=== PATIENT | female | born 1995 | race Caucasian/White ===

== ENCOUNTER 2019-09-13 10:22 | Observation (INO) ==
[2019-09-13] MEDS ORDERED: PENICILLIN G POTASSIUM 5 MILLIONUNT in DEXTROSE 5 % IN WATER 100 ML IV ONE ×2 (10:49)
[2019-09-13] MEDS ORDERED: BETAMETHASONE ACETATE,SOD PHOS 6 MG/ML VIAL IM ONE (10:49)
[2019-09-13] MEDS ORDERED: NIFEdipine 10 MG CAPSULE PO SCH (11:00)
[2019-09-13 11:18] LABS: Hematocrit 29.2 % (37.0-47.0); Hemoglobin 9.7 gm/dL (12.5-16.0); Mean Cell Volume 91.8 fl (78-100); Mean Corpuscular Hemoglobin 30.5 pg (27-31); Mean Corpuscular Hgb Conc 33.2 g/dl (32-36); Mean Platelet Volume 10.4 fl (8-12.5); Neutrophil # 10.4 K/mm3 (1.3-6.0); Neutrophil % 73.4 % (42-75.0); Platelet Count 288 K/mm3 (150-450); Red Blood Count 3.18 M/mm3 (4.2-5.4); Red Cell Distribution Width 12.7 % (11.5-14.0); White Blood Count 14.2 K/mm3 (4.0-10.5)
[2019-09-13 12:29] LABS: Urine Bilirubin Negative (NEGATIVE); Urine Blood Negative /ul (NEGATIVE); Urine Ketone Negative (NEGATIVE); Urine Nitrite Negative (NEGATIVE); Urine Protein Negative (NEGATIVE); Urine Urobilinogen Normal (NORMAL)
[2019-09-13] MEDS ORDERED: NIFEdipine 10 MG CAPSULE PO ONE (12:30)
[2019-09-13 13:05] LABS: Urine Appearance Slightly Cloudy (CLEAR); Urine Bacteria 3+; Urine Color Yellow; Urine RBC None Seen /hpf (0-5); Urine WBC 0-5 /hpf (0-5)
[2019-09-13] MEDS ORDERED: DEXTROSE 5%-LACTATED RINGERS 1,000 ML IV PRN (13:06)
[2019-09-13 13:08] LABS: Cocaine Ur Negative (NEGATIVE); Urine Barbiturate Negative (NEGATIVE); Urine Benzodiazepines Negative (NEGATIVE); Urine Opiates Negative (NEGATIVE); Urine PCP Negative (NEGATIVE); Urine THC Negative (NEGATIVE)
[2019-09-13] MEDS ORDERED: ACETAMINOPHEN 500 MG TABLET PO ONE (14:31)
[2019-09-13] MEDS ORDERED: PENICILLIN G POTASSIUM 2.5 MILLIONUNT in DEXTROSE 5 % IN WATER 100 ML IV SCH ×2 (14:52)
[2019-09-13] MEDS: PENICILLIN G POTASSIUM 2.5 MILLIONUNT in DEXTROSE 5 % IN WATER 100 ML IV SCH ×4 (14:56→20:15)
[2019-09-13] MEDS ORDERED: oxyCODONE HCL/ACETAMINOPHEN 1 TAB TABLET PO PRN (18:48)
[2019-09-13] MEDS ORDERED: hydrOXYzine PAMOATE 50 MG CAPSULE PO PRN (18:49)
--- NOTE | 2019-09-13 19:19 | HP ---
Chief Complaint - Chief Complaint Date of Service: 09/13/19 Time of Service: 18:56 Chief Complaint: painful contractions History of Present Illness: 23 yo at 35 0/7 weeks presents to L&D complaining of frequent painful contractions since early this am. She denies LOF, vaginal bleeding or d/c, recent coitus or trauma, or F/C. This complicated by anemia, anxiety, RNI, and prior hip surgery. Rh positive Rubella nonimmune GBS pending Medical History (Last Reviewed 09/13/19 @ 18:59 by Karlo Foreman DO) Cervical dysplasia Onset Date: 04/03/19 LGSIL pap smear Anxiety Onset Date: Unknown Depressed Onset Date: Unknown Surgical History: Surgical History (Last Reviewed 09/13/19 @ 18:59 by Karlo Foreman DO) History of breast augmentation Onset Date: Unknown submuscular History of hip surgery Onset Date: Unknown sledding accident Family History: Family History (Last Reviewed 09/13/19 @ 18:59 by Karlo Foreman DO) Mother Diabetes gestational Father Alive and well Social History: (Last Reviewed 09/13/19 @ 18:59 by Karlo Foreman DO) Social History: Marital status: Single current occupational status: employed current occupation: [employer] Service: No Tobacco: Smoking Status: Never smoker Alcohol: alcohol intake: former Substance Use: substance use type: does not use Dietary Habits: caffeine: Yes Review Of Systems (GEN) - Review of Systems Generalized/Overall Review: Present: Fatigue - hasn't been sleeping well EENTM: Present: No Symptoms Reported Respiratory: Present: No Symptoms Reported Cardiac: Present: No Symptoms Reported Abdominal: Present: Nausea - with pain, Vomiting, Abdominal Pain - contractions, RUQ that migrated to lower abdomen/suprapubic region Genitourinary: Present: No Symptoms Reported Musculoskeletal: Present: No Symptoms Reported Neurological: Present: No Symptoms Reported Skin: Present: No Symptoms Reported Endocrine: Present: No Symptoms Reported Immunizations: IMMUNIZATION HX Immunizations Up to Date Yes History of Influenza Vaccine No Hx Pneumococcal Vaccination No Allergies/Adverse Reactions: Allergies Allergy/AdvReac Type Severity Reaction Status Date / Time No Known Allergies Allergy Verified 09/11/19 16:23 Home Medications: HOME MEDICATIONS ferrous sulfate 325 mg (65 mg iron) tablet,delayed release 325 mg PO DAILY #30 tab 07/20/19 [Last Taken Unknown] Ondansetron [Zofran Odt] 4 mg PO Q6H PRN #20 tab 08/17/19 [Last Taken Unknown] Vits96/Iron Fum/Folic [ S] 1 tab PO DAILY 09/11/19 [Last Taken Unknown] Calcium Carbonate [Tums] 500 mg PO PRN PRN 09/13/19 [Last Taken Unknown] Exam - Exam Vital Signs: Vital Signs - Last Taken Temp 36.6 C 09/13/19 11:07 Pulse 101 H 09/13/19 12:23 Resp 16 09/13/19 11:07 BP 108/67 09/13/19 12:23 Pulse Ox 97 09/13/19 11:07 Constitutional: Present: Alert, Oriented x3, Cooperative, Somnolent, Thin and frail - appears very tired ENT Exam: Present: hearing grossly normal Neck: Absent: thyromegaly Breasts: Present: Exam deferred Respiratory: Present: lungs clear, no respiratory distress Cardiovascular/Chest: Present: normal peripheral pulses, no edema, tachycardia - mild Abdomen: Present: soft, nontender, no rebound tenderness, other - gravid /Rectal: Present: Other - cervix 1-2/80/-1 Extremity: Present: no pedal edema, no calf tenderness Skin Exam: Present: warm/dry, no cyanosis, pallor Neurologic: Present: oriented x 3, other - saddened affect Appearance: Present: appropriate appearance, appropriate insight Eye contact: Present: cooperative, good eye contact, normal speech Thoughts: Present: normal thought pattern Diagnostic Studies: Abnormal Lab Results 09/13/19 09/13/19 Range/Units 11:17 12:00 WBC 14.2 H (4.0-10.5) K/mm3 RBC 3.18 L (4.2-5.4) M/mm3 Hgb 9.7 L (12.5-16.0) gm/dL Hct 29.2 L (37.0-47.0) % Immature Gran % (Auto) 1.60 H (0.001-0.429) % Immature Gran # (Auto) 0.23 H (0.000-0.0310) K/mm3 Lymphocytes % 15.7 L (20-51) % Neutrophils # 10.4 H (1.3-6.0) K/mm3 Monocytes # 1.2 H (0.0-1.0) k/mm3 Urine Bacteria 3+ H (NONE) Laboratory Results WBC 14.2 K/mm3 (4.0-10.5) H 09/13/19 11:17 RBC 3.18 M/mm3 (4.2-5.4) L 09/13/19 11:17 Hgb 9.7 gm/dL (12.5-16.0) L 09/13/19 11:17 Hct 29.2 % (37.0-47.0) L 09/13/19 11:17 MCV 91.8 fl (78-100) 09/13/19 11:17 MCH 30.5 pg (27-31) 09/13/19 11:17 MCHC 33.2 g/dl (32-36) 09/13/19 11:17 RDW 12.7 % (11.5-14.0) 09/13/19 11:17 Plt Count 288 K/mm3 (150-450) 09/13/19 11:17 MPV 10.4 fl (8-12.5) 09/13/19 11:17 Immature Gran % (Auto) 1.60 % (0.001-0.429) H 09/13/19 11:17 Immature Gran # (Auto) 0.23 K/mm3 (0.000-0.0310) H 09/13/19 11:17 Neutrophils % 73.4 % (42-75.0) 09/13/19 11:17 Lymphocytes % 15.7 % (20-51) L 09/13/19 11:17 Monocytes % 8.3 % (0.0-9) 09/13/19 11:17 Eosinophils % 0.6 % (0.0-3.0) 09/13/19 11:17 Basophils % 0.4 % (0.0-1.0) 09/13/19 11:17 Nucleated RBC % 0.0 k/mm3 (0-1) 09/13/19 11:17 Neutrophils # 10.4 K/mm3 (1.3-6.0) H 09/13/19 11:17 Lymphocytes # 2.23 k/mm3 (1.5-3.5) 09/13/19 11:17 Monocytes # 1.2 k/mm3 (0.0-1.0) H 09/13/19 11:17 Eosinophils # 0.1 k/mm3 (0.0-0.7) 09/13/19 11:17 Absolute Basophils 0.1 k/mm3 (0.0-0.1) 09/13/19 11:17 Urine Color Yellow 09/13/19 12:00 Urine Appearance Slightly cloudy (CLEAR) 09/13/19 12:00 Urine pH 7.0 pH (5.0-7.0) 09/13/19 12:00 Ur Specific [place] 1.020 SP.GR. (1.005-1.010) 09/13/19 12:00 Urine Protein Negative mg/dL (NEGATIVE) 09/13/19 12:00 Urine Glucose (UA) Negative mg/dL (NEGATIVE) 09/13/19 12:00 Urine Ketones Negative mg/dL (NEGATIVE) 09/13/19 12:00 Urine Blood Negative /ul (NEGATIVE) 09/13/19 12:00 Urine Nitrate Negative (NEGATIVE) 09/13/19 12:00 Urine Bilirubin Negative mg/dl (NEGATIVE) 09/13/19 12:00 Urine Urobilinogen Normal EU/dl (NORMAL) 09/13/19 12:00 Ur Leukocyte Esterase Negative /ul (NEGATIVE) 09/13/19 12:00 Urine RBC None seen /hpf (0-5) 09/13/19 12:00 Urine WBC 0-5 /hpf (0-5) 09/13/19 12:00 Ur Epithelial Cells 0-5 /hpf (0-5) 09/13/19 12:00 Urine Bacteria 3+ (NONE) H 09/13/19 12:00 Urine Opiates Screen Negative (NEGATIVE) 09/13/19 12:00 Barbiturate Screen Negative (NEGATIVE) 09/13/19 12:00 Ur Phencyclidine Scrn Negative (NEGATIVE) 09/13/19 12:00 Urine Amphetamine Negative (NEGATIVE) 09/13/19 12:00 U Benzodiazepines Scrn Negative (NEGATIVE) 09/13/19 12:00 Urine Cocaine Screen Negative (NEGATIVE) 09/13/19 12:00 Urine Marijuana (THC) Negative (NEGATIVE) 09/13/19 12:00 Assessment/Plan - Assessment/Plan (1) Threatened labor Problem: Acute Qualifiers: Trimester: third trimester (2) Anemia Assessment: Patient observed for several hours because of frequent painful contractions and abdominal pain. Evaluation for abruption was negative. Contractions persisted every 1-2 minutes despite IV fluid bolus and terbutaline at her last admission 2 days ago and today despite 2 doses of nifedipine. Because of the persistence, frequency, and intensity of her contractions I will admit her for 23 hour observation where we can keep a close eye on her to make sure she doesn't go into labor. Problem: Chronic Qualifiers: Anemia type: iron deficiency Iron deficiency anemia type: inadequate dietary iron intake Qualified Code(s): D50.8 - Other iron deficiency anemias Non Stress Test - Status NST: 09/13/19 Reason for NST: threatened labor Monitor Mode: External Acceleration: Present Decelerations: None Variability: Moderate 6-25 bpm Activity: reactive - Assessment NST Assessment: threatened labor - Plan NST Plan: Admit to L&D - 23 hour observation
[2019-09-13] MEDS ORDERED: hydrOXYzine PAMOATE 25 MG CAPSULE ONE (20:05)
[2019-09-14 05:47] VITALS: BP 105/61
[2019-09-14] MEDS ORDERED: TERBUTALINE SULFATE 1 MG/ML VIAL SC ONE (06:15)
[2019-09-14] MEDS ORDERED: TERBUTALINE SULFATE 1 MG/ML VIAL ONE (06:21)
[2019-09-14] MEDS ORDERED: BETAMETHASONE ACETATE,SOD PHOS 6 MG/ML VIAL IM ONE (11:00)
--- NOTE | 2019-09-14 13:47 | DS ---
(1) Threatened labor Problem: Resolved Qualifiers: Trimester: third trimester (2) Anemia Problem: Chronic Qualifiers: Anemia type: iron deficiency Iron deficiency anemia type: inadequate dietary iron intake Qualified Code(s): D50.8 - Other iron deficiency anemias Date of Discharge:: 09/14/19 Hospital Course: Patient was admitted for 23 hour observation due to frequent painful contractions every 1-2 minutes. She failed to respond to fluid bolus or tocolytics. She developed moderate/severe right-sided abdominal/flank pain. Evaluation for kidney stone and abruption were negative. The pain slowly resolved as her contractions eased up. She had minor cervical manager of change her her hospitalization (-/-1 to /-) and contractions resolved over the past few hours prior to discharge. She received a course of betamethasone (09/13/19 and 09/14/19). GBS cx results pending. Procedures Performed: see notes below - IV hydration, tocolytics, pain medication, anxiolytics, monitoring, ultrasounds (ob limited, abdomen limited) Care Plan Goals: Deliver at term Plan of Treatment: Avoid strenuous activity, nipple stimulation, or sex until after 36 weeks. Results and Findings: Lab Pending Results 09/13/19 11:17: WBC 14.2 H, RBC 3.18 L, Hgb 9.7 L, Hct 29.2 L, MCV 91.8, MCH 30.5, MCHC 33.2, RDW 12.7, Plt Count 288, MPV 10.4, Immature Gran % (Auto) 1.60 H, Immature Gran # (Auto) 0.23 H, Neutrophils % 73.4, Lymphocytes % 15.7 L, Monocytes % 8.3, Eosinophils % 0.6, Basophils % 0.4, Nucleated RBC % 0.0, Neutrophils # 10.4 H, Lymphocytes # 2.23, Monocytes # 1.2 H, Eosinophils # 0.1, Absolute Basophils 0.1 09/13/19 12:00: Urine Opiates Screen Negative, Barbiturate Screen Negative, Ur Phencyclidine Scrn Negative, Urine Amphetamine Negative, U Benzodiazepines Scrn Negative, Urine Cocaine Screen Negative, Urine Marijuana (THC) Negative 09/13/19 12:00: Urine Color Yellow, Urine Appearance Slightly cloudy, Urine pH 7.0, Ur Specific [place] 1.020, Urine Protein Negative, Urine Glucose (UA) Negative, Urine Ketones Negative, Urine Blood Negative, Urine Nitrate Negative, Urine Bilirubin Negative, Urine Urobilinogen Normal, Ur Leukocyte Esterase Negative, Urine RBC None seen, Urine WBC 0-5, Ur Epithelial Cells 0-5, Urine Bacteria 3+ H Discharge Location: Home Disposition: Home self-care Condition: Good Discharge Activity: Activity as tolerated, Other - Avoid strenuous activity, nipple stimulation, or sex until after 36 weeks. Discharge Diet: General/regular food Problem Oriented Discharge Instructions to Patient/Family: Labor and Information, [id number] Complete Home Medications List: Complete Home Medication List: ferrous sulfate 325 mg (65 mg iron) tablet,delayed release 325 mg PO DAILY #30 tab 07/20/19 Ondansetron [Zofran Odt] 4 mg PO Q6H PRN #20 tab 08/17/19 Vits96/Iron Fum/Folic [ S] 1 tab PO DAILY 09/11/19 Calcium Carbonate [Tums] 500 mg PO PRN PRN 09/13/19
--- NOTE | 2019-09-14 14:03 | PN ---
Subjective - Date and Time Seen Date: 09/14/19 Time: 13:20 Subjective Narrative: Patient states pain is now only 1-2/10 with rare contraction (down from 11/18). Denies N/V/F/C, LOF, vaginal bleeding or d/c, dysuria, Objective - Review of Systems Generalized/Overall Review: Reports: Fatigue EENTM: Reports: No Symptoms Reported Respiratory: Reports: No Symptoms Reported Cardiac: Reports: No Symptoms Reported Abdominal: Reports: Other - rare contraction Genitourinary Symptoms: Reports: No Symptoms Reported Musculoskeletal Complaints: Reports: No Symptoms Reported Neurological: Reports: No Symptoms Reported Skin: Reports: No Symptoms Reported Endocrine: Reports: No Symptoms Reported - Vitals Vitals: Last Vital Signs Temp 37.0 C 09/14/19 05:15 Pulse 90 09/14/19 05:15 Resp 18 09/14/19 05:15 BP 105/61 09/14/19 05:15 Pulse Ox 98 09/14/19 05:15 - Exam Constitutional: Present: Alert, Oriented x3, Cooperative ENT Exam: Present: hearing grossly normal Respiratory: Present: lungs clear, no respiratory distress Cardiovascular/Chest: Present: normal peripheral pulses, regular rate, rhythm Abdomen: Present: soft, nontender, no rebound tenderness, other - gravid /Rectal: Present: Exam deferred Extremity: Present: non-tender, no pedal edema, no calf tenderness Skin Exam: Present: warm/dry, no cyanosis, pallor Neurologic: Present: alert, normal mood/affect, oriented x 3 Appearance: Present: appropriate appearance Eye contact: Present: cooperative, good eye contact Thoughts: Present: normal thought pattern, normal mood /affect Assessment/Plan - Problems/Diagnosis (1) Threatened labor Problem: Resolved Qualifiers: Trimester: third trimester (2) Anemia Problem: Chronic Qualifiers: Anemia type: iron deficiency Iron deficiency anemia type: inadequate dietary iron intake Qualified Code(s): D50.8 - Other iron deficiency anemias Non Stress Test - Status NST: 09/14/19 Weeks Gestation: 35 1/7 weeks Reason for NST: threatened labor Monitor Mode: External Acceleration: Present Decelerations: None Variability: Moderate 6-25 bpm Baseline Heart Rate: 135 Activity: reactive Reactive: 15 by 15 - Assessment NST Assessment: threatened labor - Plan NST Plan: Reassurance Provided, Other - PTL precautions
== END 2019-09-14 14:06 | disposition home or self-care (01) ==
LOC: OB 10:22 → OBCLINIC 10:22
PROVIDERS: ADMIT Obstetrics & Gynecology; ATTEND Obstetrics & Gynecology
CPT/HCPCS: 36415; 59025; 76770; 76815; 80307; 81001; 85025; 96365; 96366; 96372; G0378; G0379

== ENCOUNTER 2019-10-04 17:47 | Inpatient (IN) ==
[2019-10-04] MEDS ORDERED: OXYTOCIN/DEXTROSE 5%-WATER 30 UNITS/500 ML BAG IV ONE (20:07)
[2019-10-04] MEDS ORDERED: ONDANSETRON 4 MG TAB.RAPDIS PO PRN (20:07)
[2019-10-04] MEDS ORDERED: RINGER'S SOLUTION,LACTATED 1,000 ML IV ONE (20:07)
[2019-10-04] MEDS ORDERED: DEXTROSE 5%-LACTATED RINGERS 1,000 ML IV PRN (20:59)
[2019-10-04] MEDS ORDERED: LIDOCAINE HCL 50 ML VIAL PERI PRN (21:23)
--- NOTE | 2019-10-05 01:01 | HP ---
Chief Complaint - Chief Complaint Date of Service: 10/05/19 Time of Service: 00:51 Chief Complaint: contractions History of Present Illness: 23 yo admitted at 38 wks for labor. Patient complains of increasing frequency and intensiity of contractions. This complicated by anemia, h/o anxiety/depression, and LGSIL pap. Rh positive Rubella Nonimmune GBS negative Medical History (Last Reviewed 10/05/19 @ 00:56 by Karlo Foreman DO) Cervical dysplasia Onset Date: 04/03/19 LGSIL pap smear Anxiety Onset Date: Unknown Depressed Onset Date: Unknown Surgical History: Surgical History (Last Reviewed 10/05/19 @ 00:56 by Karlo Foreman DO) History of breast augmentation Onset Date: Unknown submuscular History of hip surgery Onset Date: Unknown sledding accident Family History: Family History (Last Reviewed 10/05/19 @ 00:56 by Karlo Foreman DO) Mother Diabetes gestational Father Alive and well Social History: (Last Reviewed 10/05/19 @ 00:56 by Karlo Foreman DO) Social History: Marital status: Single current occupational status: employed current occupation: [employer]: No Tobacco: Smoking Status: Former smoker Alcohol: alcohol intake: former Substance Use: substance use type: does not use Dietary Habits: caffeine: Yes Review Of Systems (GEN) - Review of Systems Generalized/Overall Review: Present: No Symptoms Reported EENTM: Present: No Symptoms Reported Respiratory: Present: No Symptoms Reported Cardiac: Present: No Symptoms Reported Abdominal: Present: Other - contractions Genitourinary: Present: Other - vaginal pressure Musculoskeletal: Present: No Symptoms Reported Neurological: Present: No Symptoms Reported Skin: Present: No Symptoms Reported Endocrine: Present: No Symptoms Reported Immunizations: IMMUNIZATION HX Immunizations Up to Date Yes History of Influenza Vaccine No Hx Pneumococcal Vaccination No Allergies/Adverse Reactions: Allergies Allergy/AdvReac Type Severity Reaction Status Date / Time No Known Allergies Allergy Verified 10/04/19 18:19 Home Medications: HOME MEDICATIONS Ondansetron [Zofran Odt] 4 mg PO Q6H PRN #20 tab 08/17/19 [Last Taken Unknown] Vits96/Iron Fum/Folic [ S] 1 tab PO DAILY 09/11/19 [Last Taken 10/04/19] Calcium Carbonate [Tums] 500 mg PO PRN PRN 09/13/19 [Last Taken 10/03/19] Exam - Exam Vital Signs: Vital Signs - Last Taken Temp 36.3 C 10/05/19 00:42 Pulse 82 10/04/19 22:31 Resp 18 10/04/19 22:31 BP 123/67 10/04/19 22:31 Pulse Ox 96 10/04/19 22:31 Constitutional: Present: Alert, Oriented x3, Cooperative, Mild distress ENT Exam: Present: hearing grossly normal Neck: Absent: thyromegaly Breasts: Present: Exam deferred Respiratory: Present: lungs clear, no respiratory distress Cardiovascular/Chest: Present: regular rate, rhythm, no edema Abdomen: Present: soft, nontender, no rebound tenderness, other - gravid /Rectal: Present: Other - Cervix - 4-5/90/0 Extremity: Present: no pedal edema, no calf tenderness Skin Exam: Present: normal color, warm/dry, no cyanosis Neurologic: Present: alert, normal mood/affect, oriented x 3 Appearance: Present: appropriate appearance, appropriate insight Eye contact: Present: cooperative, good eye contact Thoughts: Present: normal thought pattern, normal mood /affect Diagnostic Studies: Laboratory Results Blood Type AB Positive 10/04/19 21:15 Antibody Screen Negative 10/04/19 21:15 Assessment/Plan - Assessment/Plan (1) Labor established Assessment: Admit for routine management of labor. Epidural and pitocin PRN. Problem: Acute
--- NOTE | 2019-10-05 01:03 | PN ---
Progess Note - Interim Date: 10/05/19 Time: 01:01 Narrative: 10/05/19 01:01 Patient rating her contractions as moderate Vital signs stable. FHT: 135 baseline, reassuring contractions q 2-3 min, frequent couplets Cervix: 8/90/+1, AROM-clear Impression: Intrauterine at 38 1/7 weeks in labor Plan: Continue present plan. Position changes. Anticipate normal spontaneous vaginal delivery soon.
[2019-10-05] MEDS ORDERED: BUPIVACAINE HCL/PF 30 ML VIAL EP SCH (01:15)
[2019-10-05] MEDS ORDERED: BUPIVACAINE HCL/0.9 % NACL/PF 250 ML EP PRN (01:15)
[2019-10-05] MEDS ORDERED: ONDANSETRON HCL/PF 2 MG/ML VIAL IV PRN (01:15)
[2019-10-05] MEDS ORDERED: NALOXONE HCL 1 MG/1 ML SYRG IV PRN (01:15)
--- NOTE | 2019-10-05 01:53 | ANES ---
Anesthesia Pre Procedure Eval Vitals/Labs: Last Vital Signs Temp 36.3 C 10/05/19 00:42 Pulse 82 10/04/19 22:31 Resp 18 10/04/19 22:31 BP 123/67 10/04/19 22:31 Pulse Ox 96 10/04/19 22:31 HOME MEDICATIONS Ondansetron [Zofran Odt] 4 mg PO Q6H PRN #20 tab 08/17/19 [Last Taken Unknown] Vits96/Iron Fum/Folic [ S] 1 tab PO DAILY 09/11/19 [Last Taken 10/04/19] Calcium Carbonate [Tums] 500 mg PO PRN PRN 09/13/19 [Last Taken 10/03/19] Allergies/Adverse Reactions: Allergies Allergy/AdvReac Type Severity Reaction Status Date / Time No Known Allergies Allergy Verified 10/04/19 18:19 - Planned Procedure Planned Procedure: labor epidural Medication List Reviewed:: Yes Allergies Verified: Yes Medical History (Last Reviewed 10/05/19 @ 01:53 by Gomez Woody CRNA) Cervical dysplasia Onset Date: 04/03/19 LGSIL pap smear Anxiety Onset Date: Unknown Depressed Onset Date: Unknown Surgical History (Last Reviewed 10/05/19 @ 01:53 by Gomez Woody CRNA) History of breast augmentation Onset Date: Unknown submuscular History of hip surgery Onset Date: Unknown sledding accident Family History (Last Reviewed 10/05/19 @ 00:56 by Karlo Foreman DO) Mother Diabetes gestational Father Alive and well - Anesthesia Assessment and Plan ASA Class: PS, II Anesthesia Type Plan: Epidural
--- NOTE | 2019-10-05 02:07 | ANES ---
Anesthesia Procedure Note Procedure Note: ANESTHESIA PROCEDURE NOTE Date of Procedure: 10/05/2019. Time of procedure: 154. Performed by: Gomez Woody CRNA [employer] Teacher: None. Preprocedure diagnosis: Active labor. Post procedure diagnosis: Same. Procedure: Insertion of labor epidural. Indications: The patient is a 23-year-old female in active labor requesting labor epidural for pain management. Findings: See below. Details of the procedure: The patient was placed in a sitting position. DuraPrep as well as Betadine swabs X3 was applied to the patient's back. Patient was then draped in a sterile fashion. Lidocaine 1% was infiltrated to the skin and subcutaneous tissues at the level of the L3-4 interspace. The epidural space was identified using a 18-gauge Tuohy needle with [id number] technique. Epidural catheter was inserted to a depth of 10 centimeters at skin. Negative test dose was elicited using 3 mL of 1.5% preservative-free lidocaine plus epinephrine 1 200,000. The epidural catheter was then taped and secured in place. A loading dose of 8 mL of 0.25% preservative-free bupivacaine was administered to the epidural catheter after negative aspiration for blood and CSF. EBL: Minimal. Fluids: N/A. Specimen: N/A. Post procedure condition: The patient tolerated the procedure well. No complications were noted. Thank you for this consultation. Gomez Woody CRNA
--- NOTE | 2019-10-05 02:08 | ANES ---
Post Anesthesia Assessment - Vital Signs Vitals: Last Vital Signs Temp 36.8 C 10/05/19 02:07 Pulse 87 10/05/19 02:07 Resp 20 10/05/19 02:07 BP 131/80 10/05/19 02:07 Pulse Ox 98 10/05/19 02:07 Airway Patency: Normal - Mental Status Level Of Consciousness: Awake - N/V Assessment Nausea/Vomiting Presence: None Dehydration:: No
[2019-10-05] MEDS ORDERED: oxyCODONE HCL/ACETAMINOPHEN 1 TAB TABLET PO PRN (06:11)
[2019-10-05] MEDS ORDERED: ACETAMINOPHEN 325 MG TABLET PO PRN (06:11)
[2019-10-05] MEDS ORDERED: BENZOCAINE/MENTHOL 81 SPRAY CAN TP PRN (06:11)
[2019-10-05] MEDS ORDERED: BISACODYL 10 MG SUPP.RECT RC PRN (06:11)
[2019-10-05] MEDS ORDERED: SENNOSIDES 8.6 MG TABLET PO PRN (06:11)
[2019-10-05] MEDS ORDERED: CALCIUM CARBONATE 500 MG TAB.CHEW PO PRN (06:11)
[2019-10-05] MEDS ORDERED: HYDROCORTISONE 30 APPL TUBE TP PRN (06:11)
[2019-10-05] MEDS ORDERED: GLYCERIN/WITCH HAZEL LEAF 40 APPL BOX TP PRN (06:11)
[2019-10-05] MEDS ORDERED: OXYTOCIN/DEXTROSE 5%-WATER 30 UNITS/500 ML BAG IV ONE (06:11)
--- NOTE | 2019-10-05 06:16 | OR ---
Operative Report - Dictated Report Narrative: Indication: Maternal exhaustion Pre Procedure: Patient was counseled to the risk, benefits, and alternatives to operative vaginal delivery. All questions were answered. Patient consented to proceed with operative vaginal delivery. Cervix was completely dilated and effaced, maternal- size appropriate for application, bladder was emptied, flexion point identified, cup choice appropriate for application site, maternal tissue excluded from vacuum cup heart rate interpretation: 130 baseline with moderate variability and mild variable decelerations, EFW 3800 g, station +3, Position of head THOMAS Anesthesia: Epidural Procedure: Total application time of the Kiwi Pro with Palm Pump was 75 seconds Maximum vacuum achieved was 500 mm Hg Number of pulls 3 Number of involuntary releases to Vacuum reduced between contractions Advancement in station with each pull Degree of rotation 0-45 Post Procedure: Viable male born at 0553 on 10/05/2019 with Apgars 8 and 9, weighing 3716 g with tight nuchal cord x1 and left hand presenting at face. Placenta spontaneously delivered EBL 150 mL Cord gases not collected Lacerations none No injury, no shoulder dystocia History for History for Definition: * The number of deliveries resulting in a live the patient experienced prior to current hospitalization * The previous delivery of live twins or any live multiple gestation is considered one live event. *If primagravida or nulliparous is documented select zero for the number of previous live births. Live Events: Live Events: 0
[2019-10-05] MEDS: DOCUSATE SODIUM 100 MG CAPSULE PO SCH ×2 (16:36→23:11)
[2019-10-05] MEDS: IBUPROFEN 800 MG TABLET PO PRN (16:36)
[2019-10-05] MEDS: PRENATAL VITS96/IRON FUM/FOLIC 1 TAB TABLET PO SCH (16:36)
[2019-10-05] MEDS: FERROUS SULFATE 325 MG TABLET PO SCH (16:37)
[2019-10-06] MEDS: IBUPROFEN 800 MG TABLET PO PRN ×3 (03:13→17:37)
[2019-10-06] MEDS: DOCUSATE SODIUM 100 MG CAPSULE PO SCH ×2 (09:58→20:21)
[2019-10-06] MEDS: FERROUS SULFATE 325 MG TABLET PO SCH (09:58)
[2019-10-06] MEDS: PRENATAL VITS96/IRON FUM/FOLIC 1 TAB TABLET PO SCH (09:58)
--- NOTE | 2019-10-06 12:39 | PN ---
Subjective - Date and Time Seen Date: 10/06/19 Time: 12:39 Objective - Vitals Vitals: Last Vital Signs Temp 36.1 C 10/06/19 08:47 Pulse 83 10/06/19 08:47 Resp 16 10/06/19 08:47 BP 107/71 10/06/19 08:47 Pulse Ox 99 10/06/19 08:47 Patient denies complaints. Bottlefeeding Lochia wnl abdomen - soft, nontender Uterus -firm, at umbilicus - 1 no calf tenderness Impression: day #1 - s/p spontaneous vaginal delivery. Plan: Continue routine care Cauti Physician Documentation - Urinary Catheter Management Urethral ([place]) Date of Insertion: 10/05/19 Time of Insertion: 02:25 Date of Removal: 10/05/19 Time of Removal: 03:50 Assessment/Plan - Problems/Diagnosis (1) Labor established Problem: Acute
[2019-10-07] MEDS: IBUPROFEN 800 MG TABLET PO PRN ×2 (00:53→07:49)
[2019-10-07] MEDS: DOCUSATE SODIUM 100 MG CAPSULE PO SCH ×2 (07:49→08:01)
[2019-10-07] MEDS: FERROUS SULFATE 325 MG TABLET PO SCH ×2 (07:49→08:01)
[2019-10-07] MEDS: PRENATAL VITS96/IRON FUM/FOLIC 1 TAB TABLET PO SCH ×2 (07:49→08:01)
[2019-10-07 07:56] VITALS: BP 111/58
--- NOTE | 2019-10-07 11:27 | PN ---
Subjective - Date and Time Seen Date: 10/07/19 Time: 11:26 Objective - Vitals Vitals: Last Vital Signs Temp 36.3 C 10/07/19 07:53 Pulse 74 10/07/19 07:53 Resp 14 10/07/19 07:53 BP 111/58 10/07/19 07:53 Pulse Ox 100 10/07/19 07:53 Patient denies complaints. Bottlefeeding Lochia wnl abdomen - soft, nontender Uterus -firm, at umbilicus - 2 no calf tenderness Impression: day #2 - s/p spontaneous vaginal delivery. Plan: Routine discharge instructions Cauti Physician Documentation - Urinary Catheter Management Urethral ([place]) Date of Insertion: 10/05/19 Time of Insertion: 02:25 Date of Removal: 10/05/19 Time of Removal: 03:50 Assessment/Plan - Problems/Diagnosis (1) Labor established Problem: Acute
== END 2019-10-07 11:55 | disposition home or self-care (01) | DRG 807 ==
LOC: OBCLINIC 17:47 → OB 20:04
PROVIDERS: ADMIT Obstetrics & Gynecology; ATTEND Obstetrics & Gynecology
CPT/HCPCS: 59025; 86850